=== PATIENT | female | born 1965 | race Caucasian/White ===

== ENCOUNTER 2016-11-09 21:16 | Emergency (ER) | payer BC, OTHER ==
[2016-11-09] MEDS ORDERED: ZOLOFT25 M1 PO (22:45)
[2016-11-09] MEDS ORDERED: SYNTHROID50 MC1 PO (22:45)
[2016-11-09] MEDS ORDERED: NORCO 5-325 TA1 EACH PO (23:11)
== END 2016-11-09 23:13 ==
LOC: EDMED 21:16
DX: S53.402A Unspecified sprain of left elbow, initial encounter (principal); J45.909 Unspecified asthma, uncomplicated; Z79.899 Other long term (current) drug therapy; W18.30XA Fall on same level, unspecified, initial encounter; Y92.019 Unspecified place in single-family (private) house as the place of occurrence of the external cause